=== PATIENT | female | born 1940 | race Caucasian/White ===

== ENCOUNTER 2023-11-19 16:09 | Outpatient (REF) | payer MEDICARE, BC, SELFPAY ==
[2023-11-19 16:48] LABS: Chloride* 109 mmol/L (96-114); Potassium* 3.6 mmol/L (3.6-5.1); Sodium* 140 mmol/L (135-149)
[2023-11-19 16:51] LABS: Anion Gap 11 mEq/L (7-15); Blood Urea Nitrogen* 13 mg/dL (7-30); Calcium* 8.9 mg/dL (8.4-10.6); Carbon Dioxide* 20 mmol/L (20-32); Creatinine* 0.7 mg/dL (0.5-1.5); Estimated Glomerular Filt Rate 87 ml/min; Glucose* 106 mg/dL (60-115)
== END 2023-11-19 16:10 | disposition home or self-care (01) ==
LOC: NPINS 16:09
PROVIDERS: PCP Family Medicine; Visit Provider Nurse Practitioner Gerontology
DX: E87.1 Hypo-osmolality and hyponatremia (principal)
CPT/HCPCS: 80048

== ENCOUNTER 2023-11-26 10:06 | Outpatient (CLI) | payer MEDICARE, BC, SELFPAY ==
--- NOTE | 2023-11-26 10:15 | CRLHL7_ITS ---
For Patients: As a result of the Century Cures Act, medical imaging exams and procedure reports are released immediately into your electronic medical record. You may view this report before your referring provider. If you have questions, please contact your health care provider. CLINICAL INDICATION: Pelvis and sacral pain. COMPARISON IMAGING STUDIES: None. TECHNICAL: Axial, sagittal and coronal T1 and STIR images were obtained of the pelvis. 1.5 [facility] MRI scanner. FINDINGS: RIGHT HIP: Small amount of right hip joint fluid. Thinning of the articular cartilage. Attenuation of the anterior superior labrum reflecting sequelae of degenerative tearing. No avascular necrosis of the femoral head. LEFT HIP: Small amount of left hip joint fluid. Thinning of the articular cartilage. Attenuation of the anterior superior labrum reflecting sequelae of degenerative tearing. No avascular necrosis left femoral head. OSSEOUS STRUCTURES: There is bone marrow edema within the mid sacrum at the S3 level compatible with nondisplaced fracture. The fracture is noted on sagittal T1 image number 36 of series 6 for example. Complex cystic like structures present at S2 likely reflect perineural cysts with chronic remodeling of the S2 vertebral body noted. There is no proximal femoral or acetabular fracture. The pubic rami are intact. MUSCULOTENDINOUS STRUCTURES AND BURSAE: Small area of fatty replacement of the gluteus minimus muscle on the right compatible with chronic low-grade strain changes. No acute gluteal tendon tear. No trochanteric bursal fluid collection. Tendinosis of the common hamstring tendons. Chronic partial tearing of the common hamstring tendons bilaterally. Distal iliopsoas tendons are intact. No iliopsoas bursitis. OTHER FINDINGS: Degenerative changes within the spine. Degenerative changes of the sacroiliac joints and pubic symphysis. INTRAPELVIC CONTENTS: Colonic diverticulosis. Small fat containing umbilical region hernia. No significant inguinal hernia. IMPRESSION: 1. Nondisplaced sacral fracture at the S3 level. Associated bone marrow edema. 2. 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 There is chronic remodeling of S2. 3. 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 Small amount of hip joint fluid bilaterally. 4. 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 5. Tendinosis of the common hamstring tendons with chronic partial tearing bilaterally. Dictated by Peter Jones MD @ 11/27/2023 1:41:35 PM (Electronically Signed)
== END 2023-11-26 10:07 | disposition home or self-care (01) ==
PROVIDERS: PCP Family Medicine; Visit Provider Family Medicine
DX: R10.2 Pelvic and perineal pain (principal); S32.10XA Unspecified fracture of sacrum, initial encounter for closed fracture; S73.101A Unspecified sprain of right hip, initial encounter; S73.102A Unspecified sprain of left hip, initial encounter; S76.912A Strain of unspecified muscles, fascia and tendons at thigh level, left thigh, initial encounter; S76.911A Strain of unspecified muscles, fascia and tendons at thigh level, right thigh, initial encounter
CPT/HCPCS: 72195